=== PATIENT | female | born 1955 | race Two or more races ===

== ENCOUNTER 2024-04-20 10:12 | Outpatient (CLI) | payer OTHER | END 2024-04-20 10:35 | disposition home or self-care (01) | LOC: TOM 10:12 | PROVIDERS: ATTEND General Practice | DX: N60.11 Diffuse cystic mastopathy of right breast (principal); N60.12 Diffuse cystic mastopathy of left breast; R92.8 Other abnormal and inconclusive findings on diagnostic imaging of breast; N64.4 Mastodynia; N60.19 Diffuse cystic mastopathy of unspecified breast; R55 Syncope and collapse; I67.2 Cerebral atherosclerosis; Z12.31 Encounter for screening mammogram for malignant neoplasm of breast ==

== ENCOUNTER 2025-01-07 13:54 | Outpatient (CLI) | payer OTHER | END 2025-01-07 14:07 | disposition home or self-care (01) | LOC: TOM 13:54 | PROVIDERS: ATTEND General Practice | DX: J43.8 Other emphysema (principal); F17.200 Nicotine dependence, unspecified, uncomplicated ==

== ENCOUNTER → 2025-01-24 07:55 | Outpatient (CLI) | payer OTHER | END | disposition home or self-care (01) | LOC: NUCLEAR 07:55 | PROVIDERS: ATTEND General Practice | DX: M85.80 Other specified disorders of bone density and structure, unspecified site (principal); M81.0 Age-related osteoporosis without current pathological fracture ==

== ENCOUNTER 2025-05-03 09:10 | Outpatient (CLI) | payer OTHER | END 2025-05-03 09:13 | disposition home or self-care (01) | LOC: MAMO-SONO 09:10 | PROVIDERS: ATTEND General Practice | DX: N64.4 Mastodynia (principal); Z12.31 Encounter for screening mammogram for malignant neoplasm of breast ==

== ENCOUNTER 2025-06-27 09:23 | Outpatient (CLI) | payer OTHER ==
[2025-06-27 11:44] LABS: CREATININE SERUM 0.7 mg/dL (0.55-1.02)
== END 2025-06-27 09:28 | disposition home or self-care (01) ==
LOC: LAB 09:23
PROVIDERS: ATTEND Radiology Diagnostic Radiology
DX: R63.4 Abnormal weight loss (principal)

== ENCOUNTER 2025-06-28 08:08 | Outpatient (CLI) | payer OTHER | END 2025-06-28 08:11 | disposition home or self-care (01) | LOC: TOM 08:08 | PROVIDERS: ATTEND Surgery | DX: R63.4 Abnormal weight loss (principal) | CPT/HCPCS: 74177; Q9965 ==